=== PATIENT | male | born 1960 | race Caucasian/White ===

== ENCOUNTER 2016-03-17 11:51 | Observation (INO) | payer MEDICARE, OTHER ==
[~2016-03-17] VITALS: Ht 167.6 cm; Wt 82.6 kg
[2016-03-18 10:13] VITALS: BP_SYST 120; BP_SYST 125; RESP 18; TEMP 98.1
[2016-03-18 10:14] VITALS: Ht 167.6 cm; Wt 82.6 kg
[2016-03-18] MEDS ORDERED: CEFTRIAXONE 1 GM in SODIUM CHLORIDE 0.9% 50 ML IV ONE (11:05)
[2016-03-18 12:59] VITALS: BP_SYST 120; RESP 18; TEMP 98.1
== END 2016-03-18 11:12 | disposition home or self-care (01) ==
LOC: ENRESERV → ENRESERVDT → ENRESERVTM → CANRESERV → ENPENDDIS 03-18 10:02 → PCU 03-18 10:02
PROVIDERS: ADMIT Internal Medicine Cardiovascular Disease; ATTEND Internal Medicine Cardiovascular Disease
DX: R07.2 Precordial pain (principal); I25.10 Atherosclerotic heart disease of native coronary artery without angina pectoris; I10 Essential (primary) hypertension; Z95.1 Presence of aortocoronary bypass graft; E78.5 Hyperlipidemia, unspecified; K04.7 Periapical abscess without sinus; Z79.82 Long term (current) use of aspirin; Z79.01 Long term (current) use of anticoagulants
CPT/HCPCS: 80053; 82550; 83735; 84484; 85025; 85610; 85730; 93005; G0378; J0696